=== PATIENT | female | born 1935 | race Caucasian/White ===

== ENCOUNTER 2023-06-08 09:15 | Emergency (ER) | payer MEDICARE, OTHER ==
[~2023-06-08] VITALS: Ht 165.1 cm; Wt 54.0 kg
[~2023-06-08 09:15] MED LIST: AMLO2.5T4 PO; CEPH-585 PO; FURO-150 PO; LISI10TA27 PO; MECL-226 PO; MONT-47 PO; TRAM50TA2 PO
[2023-06-08 09:24] VITALS: BP 153/68; PULSE 93; RESP 18; O2SAT 95
[2023-06-08 09:53] LABS: BILIRUBIN,URINE NEGATIVE (Neg); CLARITY,URINE CLOUDY (Clear); COLOR,URINE YELLOW (Yellow); GLUCOSE, URINE NEGATIVE (Neg); KETONES,URINE TRACE mg/dl (Neg); LEUKOCYTE ESTERASE ,URINE SMALL (Neg); NITRITES, URINE NEGATIVE (Neg); OCCULT BLOOD,URINE SMALL (Neg); PH,URINE 5.5 (4.8-8.0); PROTEIN,URINE TRACE mg/dl (Neg); UROBILINOGEN,URINE 0.2 E.U/dL (0.2-1.0)
[2023-06-08 10:05] LABS: SQUAMOUS EPITHELIAL CELL,UR FEW /LPF (FEW); UA COLLECTION TYPE NON-SPECIFIED
[2023-06-08 10:06] LABS: BACTERIA,URINE FEW /HPF (Neg); MUCUS STRANDS FEW /LPF (Neg); WBC,URINE TNTC /HPF (0-4)
[2023-06-08] MEDS: CefTRIAXone 1000mg IM Kit (w/lidocaine diluent) IM ONE (10:32)
[2023-06-08] MEDS ORDERED: SULF1TAB49 PO (10:34)
[2023-06-08 11:07] VITALS: TEMP 98
== END 2023-06-08 11:13 | disposition home or self-care (01) ==
LOC: ER 09:16
DX: N39.0 Urinary tract infection, site not specified (principal); R19.7 Diarrhea, unspecified; Z91.018 Allergy to other foods; I10 Essential (primary) hypertension
CPT/HCPCS: 81001; 87077; 87088; 87186; 96372; 99283; J0696; A4353

== ENCOUNTER 2024-02-14 00:45 | Emergency (ER) | payer MEDICARE, OTHER ==
[~2024-02-14] VITALS: Ht 167.6 cm; Wt 80.0 kg
[2024-02-14 01:18] LABS: BASOPHILS # (AUTO) 0.1 X10'3 (0-0.2); BASOPHILS % (AUTO) 0.6 % (0-1); EOSINOPHILS # (AUTO) 0.3 X10'3 (0-0.9); EOSINOPHILS % (AUTO) 4.3 % (0-6); HEMATOCRIT 32.9 % (35.0-45.0); HEMOGLOBIN 11.2 g/dl (12.0-16.0); LYMPHOCYTES # (AUTO) 1.7 X10'3 (1.1-4.8); LYMPHOCYTES % (AUTO) 20.7 % (21-51); MEAN CORPUSCULAR HEMOGLOBIN 32.3 PG (27.0-31.0); MEAN CORPUSCULAR HGB CONC 34.1 g/dL (33.0-36.5); MEAN CORPUSCULAR VOLUME 94.5 FL (78-98); MEAN PLATELET VOLUME 7.8 FL (7.4-10.4); MONOCYTES # (AUTO) 0.9 X10'3 (0-0.9); MONOCYTES % (AUTO) 10.7 % (2-12); NEUTROPHILS # (AUTO) 5.2 X10'3 (1.8-7.7); NEUTROPHILS % (AUTO) 63.7 % (42-75); PLATELET COUNT 296 X10'3 (140-440); RED BLOOD COUNT 3.48 X10'6 (4.20-5.60); RED CELL DISTRIBUTION WIDTH 14.3 % (11.5-14.5); WHITE BLOOD COUNT 8.2 X10'3 (4.5-11.0)
[2024-02-14 01:43] LABS: ALBUMIN 3.7 G/DL (3.4-5.0); ANION GAP 10 (8-16); BLOOD UREA NITROGEN 26 MG/DL (7-18); BUN/CREATININE RATIO 35.6 (10.0-20.0); CALCIUM 8.9 MG/DL (8.5-10.1); CHLORIDE 107 MMOL/L (99-107); CREATININE 0.73 MG/DL (0.40-0.90); GLUCOSE 89 MG/DL (70-104); POTASSIUM 3.5 MMOL/L (3.5-5.1); PRO BRAIN NATRIURETIC PEPTIDE 823 PG/ML (0-450); SODIUM 141 MMOL/L (135-145); TOTAL CARBON DIOXIDE 23.9 MMOL/L (24-32); eCRCL 50 ML/MIN; eGFR 75 ML/MIN
[2024-02-14] MEDS: meclizine 12.5mg tablet PO ONE ×2 (02:05→03:45)
[2024-02-14] MEDS: aspirin 81mg tab.chew PO ONE (02:05)
[2024-02-14] MEDS ORDERED: MECL-231 PO (03:35)
[2024-02-14 04:05] VITALS: BP 150/78; PULSE 85; RESP 12; TEMP 97.5; O2SAT 96
== END 2024-02-14 04:11 | disposition home or self-care (01) ==
LOC: ER 00:45
DX: R42 Dizziness and giddiness (principal); R07.9 Chest pain, unspecified; H93.13 Tinnitus, bilateral; I11.0 Hypertensive heart disease with heart failure; I50.9 Heart failure, unspecified; I25.2 Old myocardial infarction; F12.90 Cannabis use, unspecified, uncomplicated; G47.30 Sleep apnea, unspecified; Z95.1 Presence of aortocoronary bypass graft; Z95.0 Presence of cardiac pacemaker; Z91.018 Allergy to other foods; Z79.899 Other long term (current) drug therapy
CPT/HCPCS: 36415; 69210; 70450; 71045; 80048; 83735; 83880; 84484; 85025; 93005; 99285; J8597